=== PATIENT | male | born 1990 | race Hispanic/Latino ===

== ENCOUNTER 2018-08-19 03:20 | Emergency (ER) | payer BC, OTHER ==
[2018-08-19 03:38] VITALS: O2SAT 98
[2018-08-19] MEDS ORDERED: Fluorescein 1 mg Ophthalmic Strip OD STA (04:12)
[2018-08-19] MEDS ORDERED: Tetracaine 0.5% Ophth 2 ML BOTTLE OD STA (04:12)
[2018-08-19] MEDS ORDERED: Fluorescein 1 mg Ophthalmic Strip ONE (04:15)
[2018-08-19] MEDS ORDERED: Tdap Vaccine 0.5 ml Vial (10-64 yrs) IM ONE (04:26)
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
[2018-08-19] MEDS ORDERED: Piperacillin/Tazobact 3.375 GM in Sodium Chloride 0.9% 100 ML IVPB ONE (06:42)
[2018-08-19] MEDS ORDERED: Piperacillin/Tazobact 3.375 gm Inj IVPB ONE (06:54)
[2018-08-19] MEDS ORDERED: Povidone Iodine Oint 10% Foilpak UD ONE (07:09)
[2018-08-19] MEDS ORDERED: Bacitracin/Neomycin/Polymyxin OPHT OINT OD STA (08:01)
--- NOTE | 2018-08-19 08:33 | ED PDOC ---
- ECG O2 Sat by Pulse Oximetry: 98 Disposition - Clinical Impression Clinical Impression: Eyelid laceration, Nasal fracture - POA Present On Arrival: None - Disposition Referrals: Satish Nolan MD [Medical Doctor] - Disposition: Routine/Home Disposition Time: 08:31 Condition: STABLE Prescriptions: Cephalexin [Keflex] 500 mg PO QID #40 capsule Ondansetron [Zofran] 4 mg PO Q8H #10 tab oxyCODONE/Acetaminophen [Percocet 5/325 mg Tab] 1 ea PO Q8 #10 tab Instructions: Nose Fracture, Laceration Repair With Stitches (DC) Forms: [employer] ([place]ir[place])
[2018-08-19 08:48] VITALS: BP 132/74; PULSE 89; RESP 19; TEMP 98.6
[2018-08-19] MEDS ORDERED: Piperacillin/Tazobact 3.375 GM in Sodium Chloride 0.9% 100 ML IVPB SCH (09:00)
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
== END 2018-08-19 08:45 | disposition home or self-care (01) ==
LOC: H.ER 03:20
DX: S02.2XXA Fracture of nasal bones, initial encounter for closed fracture (principal); S01.111A Laceration without foreign body of right eyelid and periocular area, initial encounter; Y04.0XXA Assault by unarmed brawl or fight, initial encounter; Y92.89 Other specified places as the place of occurrence of the external cause
CPT/HCPCS: 12011; 70486; 90471; 90715; 96365; 96375; 99283; J1885; J2543